=== PATIENT | male | born 1960 | race African-American/Black ===

== ENCOUNTER 2020-12-16 13:51 | Inpatient (IN) | payer MEDICAID ==
[~2020-12-16] VITALS: Ht 188 cm; Wt 64.4 kg
[2020-12-16] MEDS ORDERED: LORAZEPAM 2MG/ML CPJ ONE (14:25)
[2020-12-16] MEDS ORDERED: LEVETIRACETAM 1000MG PREMIX 100 ML IV ONE (14:30)
[2020-12-16] MEDS ORDERED: SODIUM CHLORIDE 0.9% 1,000 ML IV ONE (14:30)
[2020-12-16] MEDS ORDERED: LORAZEPAM 2MG/ML CPJ IV ONE (14:30)
[2020-12-16 15:06] LABS: BASOPHILS % 0.9 % (0.0-2.0); EOSINOPHILS % 0.4 % (0.0-5.0); HEMATOCRIT. 38.6 % (42.0-52.0); LYMPHOCYTES % 35.1 % (20.0-50.0); MEAN CORPUSCULAR HEMOGLOBIN 33.6 pg (28.0-32.0); MEAN PLATELET VOLUME 7.6 fl (7.4-10.4); MONOCYTES % 7.7 % (2.0-8.0); NEUTROPHILS % 55.9 % (40.0-76.0); PLATELET 187 x1000/uL (130-400); RED BLOOD CELL COUNT 4.16 mill/uL (4.7-6.1); RED CELL DISTRIBUTION WIDTH 14.9 % (11.6-14.6)
[2020-12-16 15:11] LABS: CHLORIDE 105 mEq/L (98-107)
[2020-12-16 15:20] LABS: ETHANOL BLOOD < 10 mg/dL
[2020-12-16] MEDS ORDERED: ACETAMINOPHEN 325MG TABLET PO PRN ×2 (18:15)
[2020-12-16] MEDS ORDERED: ONDANSETRON HCL 4MG/2ML INJ IV PRN (18:15)
[2020-12-16] MEDS ORDERED: CLONIDINE 0.1MG TABLET PO PRN (18:15)
[2020-12-16] MEDS ORDERED: DOCUSATE SODIUM 100MG CAPSULE PO PRN (18:15)
[2020-12-16] MEDS ORDERED: LEVETIRACETAM 500 MG in SODIUM CHLORIDE 0.9% 100 ML IV SCH (18:15)
[2020-12-16] MEDS ORDERED: HYDROCODONE/ACETAMINOPHEN 5/325MG TABLET PO PRN (18:15)
[2020-12-16] MEDS ORDERED: LORAZEPAM 0.5MG TABLET PO PRN (18:15)
[2020-12-16] MEDS ORDERED: IPRATROPIUM/ALBUTEROL 0.5-3(2.5)MG/3ML NEB HHN PRN (18:15)
[2020-12-16 19:24] LABS: CLARITY URINE CLEAR (CLEAR); COLOR URINE YELLOW (YELLOW); KETONES URINE NEGATIVE (NEGATIVE); LEUKOCYTE ESTERASE URINE TRACE (NEGATIVE); NITRITE URINE NEGATIVE (NEGATIVE); OCCULT BLOOD URINE NEGATIVE (NEGATIVE); PH URINE 8.5 (4.5-8.0); PROTEIN URINE NEGATIVE (NEGATIVE); SPECIFIC GRAVITY URINE 1.009 (1.005-1.030); UROBILINOGEN URINE 0.2 E.U./dL (0.2-1.0)
[2020-12-16 19:35] LABS: *AMPHETAMINES SCREEN URINE NEGATIVE (NEGATIVE); *BARBITURATES SCREEN URINE NEGATIVE (NEGATIVE); *BENZODIAZEPINES SCREEN URINE NEGATIVE (NEGATIVE); PHENCYCLIDINE URINE SCREEN NEGATIVE (NEGATIVE)
[2020-12-16 19:36] LABS: *COCAINE SCREEN URINE NEGATIVE (NEGATIVE); CANNABINOID URINE SCREEN PRESUMTIVE POSITIVE (NEGATIVE); METHADONE URINE SCREEN NEGATIVE (NEGATIVE); OPIATES URINE SCREEN NEGATIVE (NEGATIVE)
[2020-12-17] MEDS ORDERED: LEVETIRACETAM 500MG PREMIX 100 ML IV SCH (03:00)
[2020-12-17 03:37] VITALS: BP 157/84
[2020-12-17 04:00] VITALS: BP 144/76
[2020-12-17] MEDS ORDERED: ACETAMINOPHEN 650MG SUPP PR PRN (05:45)
[2020-12-17] MEDS: LEVETIRACETAM 500MG PREMIX 100 ML IV SCH ×2 (06:25→20:02)
[2020-12-17 08:00] VITALS: BP 133/71
[2020-12-17 12:00] VITALS: BP 144/73
[2020-12-17] MEDS: SODIUM CHLORIDE 0.9% 1,000 ML IV SCH ×2 (13:30→23:56)
[2020-12-17] MEDS ORDERED: LEVE500T19 PO (15:13)
[2020-12-17] MEDS ORDERED: AMLO5TAB88 PO (15:13)
[2020-12-17] MEDS ORDERED: ATOR40TA70 PO (15:13)
[2020-12-17 15:25] LABS: BG BASE EXCESS 1.3 mmol/L (-2.0-2.0); BG CARBOXYHEMOGLOBIN 0.7 % (0.5-1.5); BG DEOXYHEMOGLOBIN 4.8 % (0.0-5.0); BG FRACTION INSPIRED OXYGEN 32; BG HCO3 ACT 23.9 mmol/L (22.0-26.0); BG METHEMOGLOBIN 0.5 % (0.0-1.5); BG OXYGEN SATURATION 95.1 % (92.0-98.5); BG PH 7.491 (7.350-7.450); BG PO2 73.4 mmHg (75.0-100.0); BG SAMPLE SITE RIGHT RADIAL; BG VENT MODE NASAL CANNULA
[2020-12-17 16:00] VITALS: BP 151/75
[2020-12-17] MEDS: LORAZEPAM 2MG/ML CPJ IV PRN ×2 (16:04→23:46)
[2020-12-17 16:27] LABS: INR 1.1; PROTHROMBIN TIME 11.4 sec (9.6-11.0)
[2020-12-17 17:43] LABS: FOLIC ACID (FOLATE) SERUM 5.4 ng/mL (>5.38)
[2020-12-17 20:00] VITALS: BP 145/76
[2020-12-18] VITALS: BP 144/79
[2020-12-18 04:00] VITALS: BP 141/75
[2020-12-18 07:43] LABS: BASOPHILS % 0.6 % (0.0-2.0); EOSINOPHILS % 0.2 % (0.0-5.0); HEMATOCRIT. 36.8 % (42.0-52.0); LYMPHOCYTES % 25.2 % (20.0-50.0); MEAN CORPUSCULAR HEMOGLOBIN 32.4 pg (28.0-32.0); MEAN CORPUSCULAR VOLUME 91.9 fL (80.0-94.0); MEAN PLATELET VOLUME 7.7 fl (7.4-10.4); MONOCYTES % 7.4 % (2.0-8.0); NEUTROPHILS % 66.6 % (40.0-76.0); PLATELET 193 x1000/uL (130-400); RED CELL DISTRIBUTION WIDTH 14.4 % (11.6-14.6)
[2020-12-18 07:52] LABS: CHLORIDE 102 mEq/L (98-107)
[2020-12-18 08:00] VITALS: BP 133/70
[2020-12-18] MEDS: LEVETIRACETAM 500MG PREMIX 100 ML IV SCH ×2 (08:03→21:48)
[2020-12-18] MEDS ORDERED: POTASSIUM CHLORIDE 20MEQ TABLET SR PO SCH (09:00)
[2020-12-18] MEDS ORDERED: POTASSIUM CHLORIDE INJ 40 MEQ in DEXT 5% WATER 250 ML IV SCH (11:00)
[2020-12-18] MEDS ORDERED: LIDOCAINE HCL 1% 20ML VIAL (Pyxis) INJ ONE (12:49)
[2020-12-18] MEDS: LORAZEPAM 2MG/ML CPJ IV PRN (13:26)
[2020-12-18 13:45] LABS: GLUCOSE CSF 43 mg/dL (41-75)
[2020-12-18 20:00] VITALS: BP 145/68
[2020-12-18] MEDS: METOPROLOL TARTRATE 25MG TABLET PO SCH (21:48)
[2020-12-18 23:43] LABS: PHOSPHORUS 1.7 mg/dL (2.5-4.9)
[2020-12-19] VITALS: BP 140/70
[2020-12-19 04:00] VITALS: BP 149/80
[2020-12-19 07:03] LABS: CHLORIDE 103 mEq/L (98-107)
[2020-12-19 07:07] LABS: BASOPHILS % 0.8 % (0.0-2.0); EOSINOPHILS % 0.2 % (0.0-5.0); HEMATOCRIT. 39.8 % (42.0-52.0); HEMOGLOBIN. 14.2 g/dL (14.0-18.0); MEAN CORPUSCULAR HEMOGLOBIN 32.4 pg (28.0-32.0); MEAN CORPUSCULAR VOLUME 91.2 fL (80.0-94.0); MEAN PLATELET VOLUME 8.2 fl (7.4-10.4); MONOCYTES % 9.1 % (2.0-8.0); NEUTROPHILS % 69.9 % (40.0-76.0); PLATELET 200 x1000/uL (130-400); RED BLOOD CELL COUNT 4.37 mill/uL (4.7-6.1); RED CELL DISTRIBUTION WIDTH 14.7 % (11.6-14.6)
[2020-12-19 08:00] VITALS: BP 141/83
[2020-12-19] MEDS: METOPROLOL TARTRATE 25MG TABLET PO SCH ×2 (08:49→20:55)
[2020-12-19] MEDS: SODIUM CHLORIDE 0.9% 1,000 ML IV SCH ×2 (08:49→16:35)
[2020-12-19] MEDS: LEVETIRACETAM 500MG PREMIX 100 ML IV SCH ×2 (08:49→20:55)
[2020-12-19] MEDS ORDERED: POTASSIUM CHLORIDE 20MEQ TABLET SR PO SCH (11:30)
[2020-12-19 12:00] VITALS: BP 134/74
[2020-12-19 16:00] VITALS: BP 141/80
[2020-12-19 20:00] VITALS: BP 145/80
[2020-12-20] VITALS: BP 140/69
[2020-12-20 04:00] VITALS: BP 147/73
[2020-12-20] MEDS: SODIUM CHLORIDE 0.9% 1,000 ML IV SCH ×2 (05:45→19:06)
[2020-12-20 07:05] LABS: BASOPHILS % 0.6 % (0.0-2.0); EOSINOPHILS % 0.3 % (0.0-5.0); HEMATOCRIT. 36.4 % (42.0-52.0); HEMOGLOBIN. 12.6 g/dL (14.0-18.0); LYMPHOCYTES % 23.2 % (20.0-50.0); MEAN CORPUSCULAR HEMOGLOBIN 32.3 pg (28.0-32.0); MEAN CORPUSCULAR VOLUME 93.1 fL (80.0-94.0); MEAN PLATELET VOLUME 7.6 fl (7.4-10.4); NEUTROPHILS % 66.9 % (40.0-76.0); PLATELET 231 x1000/uL (130-400); RED BLOOD CELL COUNT 3.91 mill/uL (4.7-6.1); RED CELL DISTRIBUTION WIDTH 14.1 % (11.6-14.6)
[2020-12-20 08:00] VITALS: BP 148/82
[2020-12-20 08:22] LABS: CHLORIDE 107 mEq/L (98-107)
[2020-12-20] MEDS: METOPROLOL TARTRATE 25MG TABLET PO SCH ×2 (09:04→21:06)
[2020-12-20] MEDS: LEVETIRACETAM 500MG PREMIX 100 ML IV SCH ×2 (09:04→21:05)
[2020-12-20] MEDS: ASPIRIN 81MG TABLET PO SCH (09:04)
[2020-12-20] MEDS ORDERED: POTASSIUM CHLORIDE 20MEQ/PACKET PO NR ×2 (10:30→21:00)
[2020-12-20] MEDS: THIAMINE HCL 100MG TABLET PO SCH (18:12)
[2020-12-20] MEDS: MULTIVITAMINS,THER W-MINERALS TABLET PO SCH (18:12)
[2020-12-20] MEDS: FOLIC ACID 1MG TABLET PO SCH (18:13)
[2020-12-20 20:00] VITALS: BP 135/72
[2020-12-20] MEDS: ATORVASTATIN CALCIUM 40MG TABLET PO SCH (21:06)
[2020-12-21] VITALS: BP 136/75
[2020-12-21 04:00] VITALS: BP 132/71
[2020-12-21 06:34] LABS: BASOPHILS % 0.8 % (0.0-2.0); CHLORIDE 118 mEq/L (98-107); EOSINOPHILS % 0.7 % (0.0-5.0); HEMATOCRIT. 30.6 % (42.0-52.0); HEMOGLOBIN. 10.8 g/dL (14.0-18.0); LYMPHOCYTES % 24.5 % (20.0-50.0); MEAN CORPUSCULAR HEMOGLOBIN 32.3 pg (28.0-32.0); MEAN PLATELET VOLUME 7.2 fl (7.4-10.4); PLATELET 205 x1000/uL (130-400); RED BLOOD CELL COUNT 3.33 mill/uL (4.7-6.1); RED CELL DISTRIBUTION WIDTH 14.1 % (11.6-14.6)
[2020-12-21] MEDS ORDERED: METOPROLOL TARTRATE 5MG/5ML VIAL IV NR (07:45)
[2020-12-21] MEDS ORDERED: NALOXONE HCL 0.4MG/ML VIAL IV PRN (07:45)
[2020-12-21 08:00] VITALS: BP 102/64
[2020-12-21] MEDS ORDERED: POTASSIUM CHLORIDE INJ 80 MEQ in DEXT 5% WATER 500 ML IV ONE (09:15)
[2020-12-21] MEDS: LEVETIRACETAM 500MG PREMIX 100 ML IV SCH ×2 (10:33→20:56)
[2020-12-21] MEDS: ASPIRIN 81MG TABLET PO SCH (10:48)
[2020-12-21] MEDS: METOPROLOL TARTRATE 25MG TABLET PO SCH ×2 (10:48→20:55)
[2020-12-21] MEDS: THIAMINE HCL 100MG TABLET PO SCH (10:48)
[2020-12-21] MEDS: MULTIVITAMINS,THER W-MINERALS TABLET PO SCH (10:48)
[2020-12-21] MEDS: SODIUM CHLORIDE 0.9% 1,000 ML IV SCH ×2 (10:51→20:55)
[2020-12-21 12:00] VITALS: BP 145/82
[2020-12-21] MEDS ORDERED: METOPROLOL TARTRATE 5MG/5ML VIAL IV PRN (12:00)
[2020-12-21] MEDS: FOLIC ACID 1MG TABLET PO SCH (12:27)
[2020-12-21] MEDS: CLOPIDOGREL 75MG TABLET PO SCH (12:27)
[2020-12-21] MEDS: LORAZEPAM 2MG/ML CPJ IV PRN (13:40)
[2020-12-21] MEDS: MAGNESIUM OXIDE 400MG TABLET PO SCH (15:50)
[2020-12-21 16:00] VITALS: BP 158/89
[2020-12-21] MEDS ORDERED: MAGNESIUM 2 G PREMIX 50 ML IV NR (16:00)
[2020-12-21 20:00] VITALS: BP 147/78
[2020-12-21] MEDS ORDERED: LORAZEPAM 2MG/ML CPJ IV PRN (20:00)
[2020-12-21] MEDS: ATORVASTATIN CALCIUM 40MG TABLET PO SCH (20:55)
[2020-12-22] VITALS: BP 142/84
[2020-12-22 04:00] VITALS: BP 154/109
[2020-12-22] MEDS: METOPROLOL TARTRATE 25MG TABLET PO SCH ×3 (06:17→21:26)
[2020-12-22 08:00] VITALS: BP 134/77
[2020-12-22 08:12] LABS: BASOPHILS % 0.8 % (0.0-2.0); EOSINOPHILS % 1.3 % (0.0-5.0); HEMATOCRIT. 37.1 % (42.0-52.0); LYMPHOCYTES % 27.3 % (20.0-50.0); MEAN CORPUSCULAR HEMOGLOBIN 32.3 pg (28.0-32.0); MEAN CORPUSCULAR VOLUME 91.9 fL (80.0-94.0); MEAN PLATELET VOLUME 7.5 fl (7.4-10.4); MONOCYTES % 9.3 % (2.0-8.0); NEUTROPHILS % 61.3 % (40.0-76.0); PLATELET 250 x1000/uL (130-400); RED BLOOD CELL COUNT 4.04 mill/uL (4.7-6.1); RED CELL DISTRIBUTION WIDTH 14.4 % (11.6-14.6)
[2020-12-22 08:38] LABS: CHLORIDE 106 mEq/L (98-107)
[2020-12-22] MEDS: ASPIRIN 81MG TABLET PO SCH (09:36)
[2020-12-22] MEDS: CLOPIDOGREL 75MG TABLET PO SCH (09:37)
[2020-12-22] MEDS: MAGNESIUM OXIDE 400MG TABLET PO SCH (09:37)
[2020-12-22] MEDS: THIAMINE HCL 100MG TABLET PO SCH (09:37)
[2020-12-22] MEDS: LEVETIRACETAM 500MG TABLET PO SCH ×2 (09:37→21:26)
[2020-12-22] MEDS: FOLIC ACID 1MG TABLET PO SCH (09:37)
[2020-12-22] MEDS: MULTIVITAMINS,THER W-MINERALS TABLET PO SCH (09:37)
[2020-12-22] MEDS ORDERED: POTASSIUM CHLORIDE 20MEQ/PACKET PO SCH (11:00)
[2020-12-22 12:00] VITALS: BP 120/70
[2020-12-22] MEDS: SODIUM CHLORIDE 0.9% 1,000 ML IV SCH ×2 (13:00→23:28)
[2020-12-22 16:00] VITALS: BP 158/86
[2020-12-22 20:00] VITALS: BP 143/79
[2020-12-22] MEDS: ATORVASTATIN CALCIUM 40MG TABLET PO SCH (21:26)
[2020-12-23] VITALS: BP 135/78
[2020-12-23 04:00] VITALS: BP 145/80
[2020-12-23 05:39] LABS: CHLORIDE 106 mEq/L (98-107)
[2020-12-23] MEDS: METOPROLOL TARTRATE 25MG TABLET PO SCH ×3 (06:01→21:46)
[2020-12-23 06:19] LABS: BASOPHILS % 1.2 % (0.0-2.0); EOSINOPHILS % 1.2 % (0.0-5.0); HEMATOCRIT. 35.6 % (42.0-52.0); HEMOGLOBIN. 12.2 g/dL (14.0-18.0); LYMPHOCYTES % 30.8 % (20.0-50.0); MEAN CORPUSCULAR HEMOGLOBIN 31.7 pg (28.0-32.0); MEAN CORPUSCULAR VOLUME 92.3 fL (80.0-94.0); MEAN PLATELET VOLUME 7.3 fl (7.4-10.4); MONOCYTES % 8.7 % (2.0-8.0); NEUTROPHILS % 58.1 % (40.0-76.0); PLATELET 277 x1000/uL (130-400); RED BLOOD CELL COUNT 3.86 mill/uL (4.7-6.1); RED CELL DISTRIBUTION WIDTH 14.3 % (11.6-14.6)
[2020-12-23 08:00] VITALS: BP 142/73
[2020-12-23] MEDS ORDERED: POTASSIUM CHLORIDE 20MEQ TABLET SR PO SCH (08:45)
[2020-12-23] MEDS: FOLIC ACID 1MG TABLET PO SCH (09:21)
[2020-12-23] MEDS: MAGNESIUM OXIDE 400MG TABLET PO SCH (09:21)
[2020-12-23] MEDS: ASPIRIN 81MG TABLET PO SCH (09:21)
[2020-12-23] MEDS: LEVETIRACETAM 500MG TABLET PO SCH ×2 (09:21→21:46)
[2020-12-23] MEDS: CLOPIDOGREL 75MG TABLET PO SCH (09:21)
[2020-12-23] MEDS: MULTIVITAMINS,THER W-MINERALS TABLET PO SCH (09:22)
[2020-12-23] MEDS: THIAMINE HCL 100MG TABLET PO SCH (09:22)
[2020-12-23 12:00] VITALS: BP 156/85
[2020-12-23] MEDS: SODIUM CHLORIDE 0.9% 1,000 ML IV SCH (13:39)
[2020-12-23 20:00] VITALS: BP 155/83
[2020-12-23] MEDS: ATORVASTATIN CALCIUM 40MG TABLET PO SCH (21:46)
[2020-12-24] VITALS: BP 146/76
[2020-12-24] MEDS: SODIUM CHLORIDE 0.9% 1,000 ML IV SCH ×2 (03:15→14:02)
[2020-12-24 04:00] VITALS: BP 136/74
[2020-12-24] MEDS: METOPROLOL TARTRATE 25MG TABLET PO SCH ×3 (06:04→21:35)
[2020-12-24 06:07] LABS: CHLORIDE 104 mEq/L (98-107)
[2020-12-24 06:12] LABS: BASOPHILS % 0.9 % (0.0-2.0); HEMATOCRIT. 35.6 % (42.0-52.0); HEMOGLOBIN. 12.5 g/dL (14.0-18.0); LYMPHOCYTES % 29.3 % (20.0-50.0); MEAN CORPUSCULAR HEMOGLOBIN 32.1 pg (28.0-32.0); MEAN CORPUSCULAR VOLUME 91.9 fL (80.0-94.0); MEAN PLATELET VOLUME 6.9 fl (7.4-10.4); MONOCYTES % 11.2 % (2.0-8.0); NEUTROPHILS % 57.6 % (40.0-76.0); PLATELET 305 x1000/uL (130-400); RED BLOOD CELL COUNT 3.88 mill/uL (4.7-6.1); RED CELL DISTRIBUTION WIDTH 14.4 % (11.6-14.6)
[2020-12-24 08:00] VITALS: BP 141/71
[2020-12-24] MEDS: ASPIRIN 81MG TABLET PO SCH (08:48)
[2020-12-24] MEDS: LEVETIRACETAM 500MG TABLET PO SCH ×2 (08:48→21:32)
[2020-12-24] MEDS: THIAMINE HCL 100MG TABLET PO SCH (08:48)
[2020-12-24] MEDS: MAGNESIUM OXIDE 400MG TABLET PO SCH (08:48)
[2020-12-24] MEDS: MULTIVITAMINS,THER W-MINERALS TABLET PO SCH (08:48)
[2020-12-24] MEDS: FOLIC ACID 1MG TABLET PO SCH (08:48)
[2020-12-24] MEDS: CLOPIDOGREL 75MG TABLET PO SCH (09:07)
[2020-12-24] MEDS ORDERED: POTASSIUM CHLORIDE 20MEQ/PACKET PO NR (11:45)
[2020-12-24 12:00] VITALS: BP 149/92
[2020-12-24] MEDS ORDERED: THIA100T72 PO (14:13)
[2020-12-24] MEDS ORDERED: FOLI-43 PO (14:13)
[2020-12-24] MEDS ORDERED: METO25TA6 PO (14:13)
[2020-12-24] MEDS ORDERED: CLOP75TA15 PO (14:13)
[2020-12-24] MEDS ORDERED: ASPI-1160 PO (14:13)
[2020-12-24] MEDS ORDERED: MULT-379 MT (14:13)
[2020-12-24 16:28] VITALS: BP 130/68
[2020-12-24 20:00] VITALS: BP 157/88
[2020-12-24] MEDS: ATORVASTATIN CALCIUM 40MG TABLET PO SCH (21:35)
[2020-12-25] VITALS: BP 153/76
[2020-12-25 04:00] VITALS: BP 124/60
[2020-12-25] MEDS: METOPROLOL TARTRATE 25MG TABLET PO SCH ×3 (05:05→21:13)
[2020-12-25 08:00] VITALS: BP 138/78
[2020-12-25] MEDS: THIAMINE HCL 100MG TABLET PO SCH (09:23)
[2020-12-25] MEDS: ASPIRIN 81MG TABLET PO SCH (09:23)
[2020-12-25] MEDS: MULTIVITAMINS,THER W-MINERALS TABLET PO SCH (09:23)
[2020-12-25] MEDS: FOLIC ACID 1MG TABLET PO SCH (09:23)
[2020-12-25] MEDS: MAGNESIUM OXIDE 400MG TABLET PO SCH (09:23)
[2020-12-25] MEDS: LEVETIRACETAM 500MG TABLET PO SCH ×2 (09:24→21:13)
[2020-12-25] MEDS: CLOPIDOGREL 75MG TABLET PO SCH (09:24)
[2020-12-25 12:00] VITALS: BP 132/61
[2020-12-25 15:32] LABS: EOSINOPHILS % 0.5 % (0.0-5.0); HEMATOCRIT. 38.1 % (42.0-52.0); HEMOGLOBIN. 13.4 g/dL (14.0-18.0); LYMPHOCYTES % 26.5 % (20.0-50.0); MEAN CORPUSCULAR HEMOGLOBIN 32.3 pg (28.0-32.0); MEAN CORPUSCULAR VOLUME 91.4 fL (80.0-94.0); MEAN PLATELET VOLUME 6.6 fl (7.4-10.4); MONOCYTES % 9.7 % (2.0-8.0); NEUTROPHILS % 62.3 % (40.0-76.0); PLATELET 325 x1000/uL (130-400); RED BLOOD CELL COUNT 4.16 mill/uL (4.7-6.1); RED CELL DISTRIBUTION WIDTH 14.4 % (11.6-14.6)
[2020-12-25 15:38] LABS: CHLORIDE 103 mEq/L (98-107)
[2020-12-25 16:00] VITALS: BP 140/77
[2020-12-25 20:00] VITALS: BP 119/74
[2020-12-25] MEDS: ATORVASTATIN CALCIUM 40MG TABLET PO SCH (21:13)
[2020-12-26] VITALS: BP 157/98
[2020-12-26 04:00] VITALS: BP 146/77
[2020-12-26] MEDS: METOPROLOL TARTRATE 25MG TABLET PO SCH ×3 (05:58→21:12)
[2020-12-26 08:00] VITALS: BP 100/58
[2020-12-26] MEDS: SODIUM CHLORIDE 0.9% 1,000 ML IV SCH ×2 (08:35→21:55)
[2020-12-26] MEDS: MAGNESIUM OXIDE 400MG TABLET PO SCH (08:50)
[2020-12-26] MEDS: LEVETIRACETAM 500MG TABLET PO SCH ×3 (08:50→21:13)
[2020-12-26] MEDS: CLOPIDOGREL 75MG TABLET PO SCH (08:50)
[2020-12-26] MEDS: ASPIRIN 81MG TABLET PO SCH (08:50)
[2020-12-26] MEDS: MULTIVITAMINS,THER W-MINERALS TABLET PO SCH (08:56)
[2020-12-26 12:00] VITALS: BP 144/84
[2020-12-26 16:00] VITALS: BP 156/81
[2020-12-26 20:00] VITALS: BP 146/85
[2020-12-26] MEDS: ATORVASTATIN CALCIUM 40MG TABLET PO SCH ×2 (21:00→21:12)
[2020-12-27] VITALS (7 sets, daily range): BP systolic 103–150; BP diastolic 76–94
[2020-12-27] MEDS: METOPROLOL TARTRATE 25MG TABLET PO SCH ×3 (06:06→21:08)
[2020-12-27] MEDS: MULTIVITAMINS,THER W-MINERALS TABLET PO SCH (08:03)
[2020-12-27] MEDS: CLOPIDOGREL 75MG TABLET PO SCH (08:03)
[2020-12-27] MEDS: MAGNESIUM OXIDE 400MG TABLET PO SCH (08:03)
[2020-12-27] MEDS: LEVETIRACETAM 500MG TABLET PO SCH ×2 (08:03→21:08)
[2020-12-27] MEDS: ASPIRIN 81MG TABLET PO SCH (08:03)
[2020-12-27] MEDS: SODIUM CHLORIDE 0.9% 1,000 ML IV SCH (11:15)
[2020-12-27] MEDS: ATORVASTATIN CALCIUM 40MG TABLET PO SCH (21:08)
== END 2020-12-27 21:26 | DRG 45 ==
LOC: ER 13:51 → MICUSO 17:55 → EDBEDREQ 18:02 → EDBEDREQTM 18:02 → 7EST 23:51
PROVIDERS: ADMIT Internal Medicine; ATTEND Internal Medicine
PROC: 4A10X4Z Monitoring of Central Nervous Electrical Activity, External Approach (ICD-10-PCS; principal; 2020-12-17)
PROC: 009U3ZZ Drainage of Spinal Canal, Percutaneous Approach (ICD-10-PCS; 2020-12-18)
PROC: B01BZZZ Fluoroscopy of Spinal Cord (ICD-10-PCS; 2020-12-18)
DX: I63.9 Cerebral infarction, unspecified (principal); J69.0 Pneumonitis due to inhalation of food and vomit; G92 Toxic encephalopathy; E87.3 Alkalosis; G40.909 Epilepsy, unspecified, not intractable, without status epilepticus; E87.6 Hypokalemia; I10 Essential (primary) hypertension; I87.2 Venous insufficiency (chronic) (peripheral); J45.909 Unspecified asthma, uncomplicated; Z20.822 Contact with and (suspected) exposure to COVID-19; R09.02 Hypoxemia; E83.42 Hypomagnesemia; I49.3 Ventricular premature depolarization; Z86.73 Personal history of transient ischemic attack (TIA), and cerebral infarction without residual deficits
CPT/HCPCS: 36415; 36600; 62328; 70551; 71045; 80048; 80053; 80061; 80305; 80320; 81003; 82140; 82375; 82607; 82746; 82805; 82945; 83735; 84100; 84145; 84157; 84443; 84484; 85025; 87070; 87426; 92610; 93005; 93306; 93880; 95816; 97162; 97166; 99285; C1893; J1953; J2060; J3475; J3480; J3490; J7030; J7040; J7060; A4315; G0480